=== PATIENT | female | born 1945 | race Caucasian/White ===

== ENCOUNTER 2016-07-25 07:49 | Emergency (ER) | payer OTHER ==
[~2016-07-25] VITALS: Ht 157.5 cm; Wt 76.0 kg
[~2016-07-25 07:49] MED LIST: CALTRATE 600 +1 EAC1 PO; CEPHALEXIN500 MG PO; CYMBALTA60 MG PO; DESYREL 150 MG150 MG PO; DESYREL100 MG; DESYREL100 MG PO; FLEXERIL10 MG PO; GLUCOPHAGE500 MG PO; KLONOPIN1 MG PO; LEVAQUIN500 MG PO; LIDODERM 5% P1 PATCH TD; LORTAB 7.5-3251 EACH PO; MECLIZINE HCL25 MG PO; MUCINEX D ER T1 EACH PO; OMEPRAZOLE20 MG PO; PERCOCET 5/31 TABLET PO; PRILOSEC40 MG PO; PROZAC40 MG PO; SIMVASTATIN20 MG; SIMVASTATIN20 MG PO; TRAZODONE HCL100 MG PO; VITAMIN D-32000 UNI2 PO; WOMEN'S 50+ DA1 EAC1 PO
[2016-07-25 09:03] LABS: EOSINOPHIL (%) 0.9 % (0-5); EOSINOPHIL COUNT 0.1 K/uL (0-0.3); HEMATOCRIT 39.9 % (36.0-46.0); IMMATURE GRANULOCYTE (%) 0.5 % (0.0-0.7); IMMATURE GRANULOCYTE COUNT 0.4 K/uL; LYMPHOCYTE COUNT 1.5 K/uL (1.0-2.8); MCH 28.8 PG (29.0-34.0); MCHC 32.1 G/DL (30.0-36.0); MCV 89.9 FL (83-99); MEAN PLAT.VOLUME 9.2 uM^3 (9.5-12.4); MONOCYTE (%) 5.7 % (3-12); MONOCYTE COUNT 0.4 K/uL (0-0.8); NEUTROPHIL COUNT 5.6 K/uL (1.8-6.4); PLATELET COUNT 319 K/uL (156-360); RBC DIS.WIDTH-CV 13.2 % (11.8-14.6); RBC DIS.WIDTH-SD 42.4 % (39-53); RED BLOOD COUNT 4.44 M/uL (3.80-5.20); WHITE BLOOD COUNT 7.6 K/uL (4.1-10.2)
[2016-07-25 09:13] LABS: CHLORIDE 108 mEq/L (99-109); SODIUM 143 mEq/L (136-147)
[2016-07-25 09:14] LABS: GLUCOSE 103 mg/dL (70-99)
[2016-07-25 09:16] LABS: ANION GAP 10 MEQ/L (2-14)
[2016-07-25 09:18] LABS: GFR ESTIMATE (CALCULATED) > 59 mL/min/
[2016-07-25 09:19] LABS: UREA NITROGEN (BUN) 15 mg/dL (9-23)
[2016-07-25 10:41] LABS: ADD MIUA? YES; BILIRUBIN NEGATIVE; BLOOD SMALL; COLOR YELLOW ((YELLOW)); GLUCOSE (STRIP) NEGATIVE; KETONES NEGATIVE; LEUKOCYTES MODERATE; NITRITE NEGATIVE; PROTEIN (STRIP) 30; SPECIFIC GRAVITY 1.023 (1.000-1.030); UROBILINOGEN 0.2 MG/DL (0.2-1.0)
[2016-07-25 10:49] LABS: BACTERIA RARE /HPF; CALCIUM OXALATE CRYSTALS 4+ /HPF; EPITHELIAL CELLS NONE SEEN /HPF; HYALINE CASTS 0-5 /LPF; MUCUS 2+ /LPF; RED BLOOD CELLS 30-40 /HPF (0-5); WHITE BLOOD CELLS 15-20 /HPF (0-5)
[2016-07-25] MEDS ORDERED: ZOFRAN ODT4 MG PO (11:31)
[2016-07-25] MEDS ORDERED: FLOMAX0.4 MG PO (11:31)
[2016-07-25] MEDS ORDERED: LEVAQUIN500 MG PO (11:31)
[2016-07-25 11:56] VITALS: BP 156/73
== END 2016-07-25 11:59 | disposition home or self-care (01) ==
LOC: EME → EDBD 07:49 → EME 07:49
PROVIDERS: Emergency Medicine
DX: N20.1 Calculus of ureter (principal); N39.0 Urinary tract infection, site not specified
CPT/HCPCS: 74176; 80048; 81003; 85025; 99281; 99284; J1885; J2270; J2405; J3010

== ENCOUNTER 2016-08-23 05:23 | Inpatient (IN) | payer OTHER ==
[~2016-08-23] VITALS: Ht 157.5 cm; Wt 73.5 kg
[~2016-08-23 05:23] MED LIST changes: +FLOMAX0.4 MG PO; +ZOFRAN ODT4 MG PO
[2016-08-23 05:56] VITALS: BP 139/72
[2016-08-23 15:28] VITALS: BP 148/64
[2016-08-23 20:41] VITALS: BP 137/65
[2016-08-24 00:37] VITALS: BP 132/65
[2016-08-24 04:10] VITALS: BP 133/63
[2016-08-24 12:05] VITALS: BP 126/70
[2016-08-24 16:01] VITALS: BP 122/67
[2016-08-25] VITALS (7 sets, daily range): BP systolic 112–172; BP diastolic 58–80
[2016-08-26 06:59] VITALS: BP 152/60
[2016-08-26 10:56] VITALS: BP 156/78
[2016-08-26 15:34] VITALS: BP 125/65
[2016-08-26 19:55] VITALS: BP 175/77
[2016-08-26 22:08] LABS: POINT-OF-CARE METER ID UU14149397
[2016-08-26 23:40] VITALS: BP 139/69
[2016-08-27 08:14] VITALS: BP 132/66
== END 2016-08-27 12:52 | DRG 460 ==
LOC: 2SOUTH 05:23 → 3EAST 05:23 → 2SOUTH 08:44 → 3EAST 14:33
PROVIDERS: Neurological Surgery
DX: M43.16 Spondylolisthesis, lumbar region (principal); M48.06 Spinal stenosis, lumbar region; G89.18 Other acute postprocedural pain; E78.00 Pure hypercholesterolemia, unspecified; K21.9 Gastro-esophageal reflux disease without esophagitis; E11.9 Type 2 diabetes mellitus without complications; F41.9 Anxiety disorder, unspecified
CPT/HCPCS: 72100; 76000; 82948; 94799; 97530 GO; J0330; J0690; J1100; J1170; J1200; J1580; J1885; J2270; J2405; J3010; J3370; J3480